=== PATIENT | male | born 1970 | race Caucasian/White ===

== ENCOUNTER 2016-05-24 00:37 | Observation (INO) | payer OTHER ==
[2016-05-23 23:48] LABS: POC - CKMB 2.5 ng/mL (0.0-7.9); POC - TROPONIN <0.05 ng/mL (<=0.05)
--- NOTE | ~2016-05-24 | EKG ---
PATIENT: LAUREANO GRANDE UNIT #: [id number] Ventricular Rate: 68 BPM Atrial Rate: 68 BPM P-R Interval: 182 ms QRS Duration: 114 ms Q-T Interval: 420 ms QTC Calculation(Bezet): 446 ms Calculated R [place]: 65 degrees Calculated T [place]: 58 degrees Diagnosis Line: Normal sinus rhythm Diagnosis Line: Normal ECG Diagnosis Line: When compared with ECG of 23-MAY-2016 22:57, Diagnosis Line: (unconfirmed) Diagnosis Line: No significant change was found Diagnosis Line: Confirmed by TERRY STARK MD ([id number]) on Diagnosis Line: 05/26/2016 11:58:28 PM INTERPRETING MD: LINCOLN GARCIA
--- NOTE | ~2016-05-24 | HP ---
Unit #: [id number] #: [id number] Patient: LAUREANO GARNER [id number] [address] [place], [place] [address] [id number] I MR#: [id number] NAME: LAUREANO GARNER ROOM: 567 Age: 46 Sex: M Admission Date: 05/24/2016 : 1970 Attending Physician: Honorio Smith M.D. Primary Care Physician: No Primary Care Physician HISTORY AND PHYSICAL CHIEF COMPLAINT Chest pain. HISTORY OF PRESENT ILLNESS The patient is a 46-year-old male with a history of coronary artery disease and RCA stent placement performed in [place] in April of 2015, who presented to the emergency department with complaints of chest pain. The patient describes the pain as a stabbing pain yet also a pressure. He says there is radiation to his left arm. He states this is similar to what he experienced with his unstable angina in April of 2015. The patient also reports after his stent was placed that he had a post NH and went back to the [facility] for a second intervention. These records are not available. I do have a card that shows he had RCA stent placement in April of 2015. The patient also has a history of hypertension, dyslipidemia, depression and COPD. The stents were placed at [facility] in [place]. The patient states that there was some associated shortness of air, nausea, vomiting and diaphoresis. He also has had some occasional dizziness. He states the pain is constant at times but also has some episodes of relief. He states the nitroglycerin has not helped the pain. PAST MEDICAL HISTORY 1. Coronary artery disease with history of RCA stent in 2016 complicated by post NH per patient and second intervention. 2. Hypertension. 3. Dyslipidemia. 4. Depression. 5. COPD. 6. Low back injury. PAST SURGICAL HISTORY None. SOCIAL HISTORY He denies tobacco use. However, there is note of vapor cigarette in the ER records. He does smoke marijuana daily for anxiety. He denies alcohol use. He does not work. FAMILY HISTORY His father had a NH, pacemaker and defibrillator and at the age of 58. ALLERGIES Tramadol and Toradol. Unit #: [id number] #: [id number] Patient: LAUREANO GARNER HOME MEDICATIONS 1. Lipitor 20 mg daily. 2. Synthroid 100 mcg daily. 3. Toprol XL 50 mg daily. 4. Aspirin 325 mg daily. 5. Flovent 100 mcg inhalation daily. 6. Lisinopril/HCTZ 20/25 mg daily. 7. Citalopram 40 mg daily. 8. Plavix 75 mg daily. 9. Remeron 15 mg q.h.s. REVIEW OF SYSTEMS CONSTITUTIONAL: The patient denies recent fevers, chills or flu-like symptoms. He does report losing 100 pounds over the past year which was unintentional. HEENT: The patient denies headache, vision loss, hearing loss epistaxis or dysphagia. PULMONARY: The patient denies cough, hemoptysis or wheezing. CARDIAC: Chest pain as above. The patient denies palpitations or tachycardia, orthopnea or PND. PULMONARY: The patient denies cough, hemoptysis or wheezing. GASTROINTESTINAL: Nausea and vomiting as above. The patient denies melena. GENITOURINARY: The patient denies hematuria. EXTREMITIES: He has occasional swelling. NEUROLOCICAL: Dizziness as above. No syncope. MUSCULOSKELETAL: The patient has low back pain and feels this limits him from walking on the treadmill for a stress test. PHYSICAL EXAMINATION GENERAL APPEARANCE: The patient is a well-developed, well-nourished male in no acute distress, awake, alert and oriented x3. VITAL SIGNS: Blood pressure 111/60. Heart rate 81 and regular. Respirations 19 and regular. Temperature 98.1. Weight 160 lb. SKIN: No rashes or hives. There are tattoos on the left upper extremity. HEENT: Head is normocephalic, atraumatic. There is poor dentition. NECK: No JVD or carotid bruit. CARDIAC: Regular rate and rhythm without murmur, gallop, rub or lift. PULMONARY: Clear to auscultation bilaterally without wheezes, rhonchi, rales or accessory muscle use. ABDOMEN: Soft, nontender, nondistended. Positive bowel sounds x4. The abdominal pulsation is not enlarged. EXTREMITIES: No clubbing, cyanosis or edema. NEUROLOGIC: Awake and oriented x3. DIAGNOSTIC STUDIES LABORATORY: TSH is 11.83. Cholesterol 162, triglycerides 62, LDL 101, HDL 49. Troponin less than 0.03 at 7:45 this morning and less than 0.05 at 23:46 yesterday. Sodium 133, potassium 3.6, chloride 95, CO2 29, glucose 109, BUN 23, creatinine 1.1. PT 10.1, INR 1.0. WBC 10.6,hemoglobin 13.0, hematocrit 39.4, platelets 224. IMAGING: Chest x-ray shows probable emphysema. There is no active disease. CARDIOVASCULAR: EKG shows normal sinus rhythm with some subtle ST elevation in the lateral leads. There is no reciprocal depression. Unit #: [id number] #: [id number] Patient: LAUREANO GARNER ASSESSMENT AND PLAN 1. Chest pain. 2. Coronary artery disease with history of RCA stent and reported post NH by the patient with repeat intervention. 3. Hypertension. 4. Dyslipidemia. 5. Daily marijuana use. 6. Hypothyroidism. 7. COPD. Mr. Garner's case was discussed with Dr. Honorio Smith. He will have a Lexiscan Cardiolite in that he states he is unable to walk the treadmill. Further recommendations will follow. If this is negative, he will be discharged home. If this shows any sign of ischemia, we will plan on a left heart catheterization. The patient also has recently moved here from [place] and reports he has ran out of some of his medications over the past week. Dictated by Tricia Martinez.Bob. for Honorio Smith M.D. JUDIT/jonatan TD: 05/24/2016 09:43 JOB #: [id number] HISTORY AND PHYSICAL X X HISTORY AND PHYSICAL
--- NOTE | ~2016-05-24 | DS ---
Unit #: [id number] #: [id number] Patient: LAUREANO GARNER [id number] [address] [address] [id number] I MR#: [id number] NAME: LAUREANO GARNER ROOM: 567 Age: 46 Sex: M Admission Date: 05/24/2016 : 1970 Discharge Date: 05/24/2016 Attending Physician: Honorio Smith M.D. Primary Care Physician: Primary Care Physician No DISCHARGE SUMMARY ANTICIPATED DATE OF DISCHARGE 05/25/2016. ADMITTING DIAGNOSES 1. Chest pain. 2. Coronary artery disease with a history of right coronary artery stent in 04/2015. 3. Hypertension. 4. Dyslipidemia. 5. Depression. 6. Chronic obstructive pulmonary disease. 7. Low-back injury. 8. Daily marijuana use and recent tobacco use. DISCHARGE DIAGNOSES 1. Chest pain. 2. Coronary artery disease with a history of right coronary artery stent in 04/2015. 3. Hypertension. 4. Dyslipidemia. 5. Depression. 6. Chronic obstructive pulmonary disease. 7. Low-back injury. 8. Daily marijuana use and recent tobacco use. HISTORY OF PRESENT ILLNESS The patient is a 46-year-old male, who was recently moved to this area from [place]. He has a history of CAD and stent placement in 04/2015 at [place]. The patient says that he has been having a left-sided chest stabbing pain. This is also just prior to the pressure and radiation to his left arm. Serial troponins were negative. The patient had a Lexiscan Cardiolite which is actually pending at the time of this dictation. If this is negative, the patient will be discharged home. If it is positive, then further recommendations will be made. DISCHARGE MEDICATIONS Lisinopril 20/25 mg daily, Flovent 100 mcg b.i.d., citalopram 40 mg daily, Remeron 15 mg q.h.s., Toprol-XL 50 mg daily, Lipitor 20 mg daily, aspirin 325 mg daily, Plavix 75 mg daily, Synthroid 100 mcg daily. Mr. Garner will be discharged home after the results of his Lexiscan are available if negative. Again if these are positive, further workup will be performed. This was discussed with Dr. Honorio Smith. He will follow up Unit #: [id number] #: [id number] Patient: LAUREANO GARNER with Dr. Smith within 1 month and was advised to follow up with his primary care physician within the next 2 weeks. Dictated by... Clarisa Person P.A.C. for Honorio Smith M.D. CMG/mari TD: 05/25/2016 00:55 JOB #: [id number] DISCHARGE SUMMARY X X DISCHARGE SUMMARY
--- NOTE | ~2016-05-24 | EKG ---
PATIENT: LAUREANO GRANDE UNIT #: [id number] Ventricular Rate: 81 BPM Atrial Rate: 81 BPM P-R Interval: 160 ms QRS Duration: 112 ms Q-T Interval: 396 ms QTC Calculation(Bezet): 460 ms P [place]: 60 degrees Calculated R [place]: 55 degrees Calculated T [place]: 59 degrees Diagnosis Line: Normal sinus rhythm Diagnosis Line: Normal ECG Diagnosis Line: No previous ECGs available Diagnosis Line: Confirmed by TERRY STARK MD ([id number]) on Diagnosis Line: 05/26/2016 11:57:40 PM INTERPRETING MD: LINCOLN GARCIA
--- NOTE | ~2016-05-24 | CR72 ---
[facility] A Service of [facility] RADIOLOGY TEXT RESULTS PATIENT: LAUREANO GRANDE LOCATION: [facility] 567-01 : [birth year] UNIT #: [id number] AGE: [address]: Honorio Smith MD SEX: M ORDER DR: [id number] [facility] [address] [facility] [address] [address]. [place], [place] [address] [id number] I MR#: [id number] Acc #: [id number] NAME: LAUREANO GRANDE : 1970 SEX: M STUDY DATE/TIME: 05/23/2016 23:44 UNIT: [facility] ROOM: [facility] STUDY DESCRIPTION: CR Chest Single View Portable Attending Physician: Honorio Smith M.D. Ordering Physician: Cherise Ragsdale M.D. Primary Care Physician: Primary Care Physician No MEDICAL IMAGING REPORT This report is preliminary unless electronic signature is present EXAM Portable chest 05/23 at 23:44 INDICATIONS Chest pain and shortness of air and left arm pain that started tonight. History of hypertension. FINDINGS AP portable chest was obtained. No comparison. Cardiac and mediastinal contours are normal. Lungs appear emphysematous but clear. No pneumothorax. IMPRESSION Probable emphysema. No active disease. Correlate with smoking history. Dictated by... Adan Mcneal Jr., M.D. THIS IS AN ELECTRONICALLY VERIFIED REPORT Adan Mcneal Jr., M.D. at 05/24/2016 12:38 PM DARYL/haley TD: 05/24/2016 09:20 JOB #: [id number] MEDICAL IMAGING REPORT COPY
--- NOTE | ~2016-05-24 | TH ---
Unit #: [id number] #: [id number] Patient: LAUREANO GRANED [id number] [address] [address] [id number] I MR#: [id number] NAME: LAUREANO GRANDE : 1970 SEX: M STUDY DATE/TIME: 05/24/2016 UNIT: [facility] ROOM: 567 STUDY DESCRIPTION: Imaging and ECG Attending Physician: Honorio Smith M.D. Primary Care Physician: No Primary Care Physician CARDIOLOGY REPORT EXAM Stress nuclear and ECG INDICATION Atypical chest pain, known coronary artery disease, stenting done in the past in [place]. Unknown locations. SUMMARY Patient was given Lexiscan intravenously. Patient stated he could not exercise because he was mentally disabled. Patient experienced dizziness and lightheadedness as well as chest pain both at rest and with stress. Technetium-99m Cardiolite, 12.0 and 30.5 mCi was given at rest and stress respectively. Appropriate views were obtained. There was early repolarization noted throughout the ECG both at rest and stress. There was no ST depression to suggest ischemia. Heart rate increased from 75 to 109, and blood pressure decreased from 113/79 to 92/54. Perfusion images show intestinal artifact more at stress than at rest. LV size is moderately enlarged, and ejection fraction 51%. There is mild hypokinesis of the anterior wall, and anterior septum. Summed stress score is 1, summed difference score is 1. End-diastolic volume is 150 mL, ejection fraction 51%. Perfusion images other than the diaphragmatic attenuation artifact and intestinal artifact both at rest and stress are essentially normal and unchanged. RV size appears upper normal. Planar images show no significant patient motion either at rest or stress. There is no significant lung uptake, but there is LV and RV enlargement. IMPRESSION 1. Cannot rule out prior anterior ischemic event and inferior ischemic event. 2. No current ischemia. 3. Prior infarctions as noted. 4. Atypical chest discomfort. 5. Normal heart rate and blood pressure responses to Lexiscan. 6. Patient may be discharged. Unit #: [id number] #: [id number] Patient: LAUREANO GRANDE Dictated by... Honorio Smith M.D. PHOEBE/isaiah TD: 05/26/2016 17:11 JOB #: [id number] CARDIOLOGY REPORT X Honorio Smith MD CARDIOLOGY REPORT
[2016-05-24 00:14] LABS: BASOPHIL# 0.1 X10e3 (0-0.3); BASOPHIL% 0.7 % (0-2.5); EOSINOPHIL# 0.2 X10e3 (0-0.7); EOSINOPHIL% 1.4 % (0.0-7.0); HEMATOCRIT 39.4 % (38.0-50.0); LYMPHOCYTE# 3.7 X10e3 (1.0-3.5); LYMPHOCYTE% 35.1 % (17.0-45.0); MEAN CELL VOLUME 85.6 FL (83-96); MEAN CORPUSCULAR HEMOGLOBIN 28.3 PG (28-34); MEAN CORPUSCULAR HGB CONC 33.1 g/dL (30-36); MEAN PLATELET VOLUME 9.4 FL (6.5-11.5); MONOCYTE# 0.9 X10e3 (0-1.0); MONOCYTE% 8.5 % (3.0-12.0); NEUTROPHIL# 5.7 X10e3 (1.5-7.1); NEUTROPHIL% 54.3 % (40-75); PLATELET COUNT 224 X10e3 (140-420); RED CELL DISTRIBUTION WIDTH 13.9 % (11.0-15.5); WHITE BLOOD COUNT 10.6 X10e3 (4.0-10.5)
[2016-05-24 00:16] LABS: DIFF IND NO
[2016-05-24 00:21] LABS: PARTIAL THROMBOPLASTIN TIME 24.7 SECONDS (23.5-31.3); PROTHROMBIN TIME (PATIENT) 10.1 SECONDS (9.6-11.5)
[2016-05-24 00:35] LABS: ALBUMIN SERUM 4.1 g/dL (3.5-5.0); ALKALINE PHOSPHATASE 60 U/L (32-92); ALT (SGPT) 24 U/L (10-40); AST (SGOT) 31 U/L (10-42); BILIRUBIN, DIRECT 0.1 mg/dL (0.0-0.2); BILIRUBIN,INDIRECT 0.3 mg/dL (0.0-0.9); BILIRUBIN,TOTAL 0.4 mg/dL (0.2-2.0); BLOOD UREA NITROGEN 23 mg/dL (9-23); CALCIUM SERUM 9.1 mg/dL (8.4-10.2); CARBON DIOXIDE 29 mmol/L (22-31); CHLORIDE 95 mmol/L (100-111); CREATININE SERUM 1.1 mg/dL (0.6-1.4); GLOM FILT RATE Estimated ABOVE60 mL/min (>60); GLUCOSE FASTING 109 mg/dL (70-110); POTASSIUM 3.6 mmol/L (3.5-5.1); PROTEIN TOTAL SERUM 6.8 g/dL (6.0-8.3); SODIUM 133 mmol/L (135-145)
[2016-05-24 02:17] LABS: POC - CKMB <1.0 ng/mL (0.0-7.9); POC - TROPONIN <0.05 ng/mL (<=0.05)
[2016-05-24] MEDS ORDERED: LIPITOR20 MG PO (05:27)
[2016-05-24] MEDS ORDERED: SYNTHROID PO (05:27)
[2016-05-24] MEDS ORDERED: TOPROL XL50 MG PO (05:28)
[2016-05-24] MEDS ORDERED: ASPIRIN ENTERI325 M1 PO (05:29)
[2016-05-24] MEDS ORDERED: LISINOPRIL-HCTZ1 T15 PO (05:30)
[2016-05-24] MEDS ORDERED: FLOVENT DISKU100 MCG INH (05:30)
[2016-05-24] MEDS ORDERED: CITALOPRAM HBR40 M1 PO (05:31)
[2016-05-24] MEDS ORDERED: CLOPIDOGREL75 MG PO (05:31)
[2016-05-24] MEDS ORDERED: REMERON15 MG PO (05:31)
[2016-05-24 08:56] LABS: CHOLESTEROL 162 mg/dL (0-200); HDL CHOLESTEROL 49 mg/dL (29-75); LDL CHOLESTEROL 101 mg/dL (-130); LDL/HDL RATIO 2 RATIO (0-4); TRIGLYCERIDES 62 mg/dL (10-160)
== END 2016-05-24 19:30 | disposition home or self-care (01) | DRG 313 ==
LOC: CED 00:37 → CEDOF 01:48 → C5C 04:13
PROVIDERS: Emergency Medicine
DX: R07.89 Other chest pain (principal); I25.10 Atherosclerotic heart disease of native coronary artery without angina pectoris; Z95.5 Presence of coronary angioplasty implant and graft; I10 Essential (primary) hypertension; I51.7 Cardiomegaly; I25.2 Old myocardial infarction; E78.5 Hyperlipidemia, unspecified; Z23 Encounter for immunization; I51.89 Other ill-defined heart diseases; S39.92XA Unspecified injury of lower back, initial encounter; F32.9 Major depressive disorder, single episode, unspecified; J44.9 Chronic obstructive pulmonary disease, unspecified; F17.200 Nicotine dependence, unspecified, uncomplicated; F12.90 Cannabis use, unspecified, uncomplicated
CPT/HCPCS: 36415; 71010; 78452; 80048; 80061; 80076; 82553; 83036; 84443; 84484; 85025; 85610; 85730; 90688; 93005; 93017; 93306; 99285; A9500; G0008; G0378; J2785

== ENCOUNTER 2016-05-26 23:25 | Emergency (ER) | payer OTHER ==
[~2016-05-26 23:25] MED LIST: ASPIRIN ENTERI325 M1 PO; CITALOPRAM HBR40 M1 PO; CLOPIDOGREL75 MG PO; FLOVENT DISKU100 MCG INH; LIPITOR20 MG PO; LISINOPRIL-HCTZ1 T15 PO; REMERON15 MG PO; SYNTHROID PO; TOPROL XL50 MG PO
== END 2016-05-27 04:12 ==
LOC: CED 23:25
DX: R45.851 Suicidal ideations (principal); R44.0 Auditory hallucinations
CPT/HCPCS: 99285

== ENCOUNTER 2016-05-27 05:10 | Inpatient (IN) | payer OTHER ==
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
--- NOTE | ~2016-05-27 | HP ---
Unit #: [id number] #: [id number] Patient: LAUREANO GRANDE [id number] [place] [address] [id number] I MR#: [id number] NAME: LAUREANO GRANDE. ROOM: P122 Age: 46 Sex: M Admission Date: 05/27/2016 : 1970 Attending Physician: Terry Arteaga M.D. Admitting Physician: Terry Arteaga M.D. Primary Care Physician: Primary Care Physician No HISTORY AND PHYSICAL HISTORY OF PRESENT ILLNESS Laureano is a 46 year old admitted to [address] [place] [address] with psychotic behavior. He reports auditory hallucinations. PAST MEDICAL HISTORY 1. Coronary artery disease. a. Angioplasty with stent placement. b. History of NC. 2. COPD. 3. Hyperlipidemia. 4. High blood pressure. PAST SURGICAL HISTORY Tramadol, Toradol. SOCIAL HISTORY He does not smoke. Denies alcohol. Admits to daily use of marijuana. FAMILY HISTORY Medically noncontributory. REVIEW OF SYSTEMS CONSTITUTIONAL: No fever or chills. HEENT: Denies any sore throat, ear pain or runny nose. CARDIOVASCULAR: Denies chest pain, irregular heart rhythm or palpitations. CHEST: Denies shortness of breath or cough. No hemoptysis. GASTROINTESTINAL: Denies nausea, vomiting, diarrhea or chronic constipation. ENDOCRINE: Denies history of increased thirst or urination. No recent significant weight loss or gain. GENITOURINARY: Denies dysuria, frequency, or hematuria. SKIN: Denies any rashes. HEMATOLOGIC: Denies history of increased bleeding or bruising. MUSCULOSKELETAL: Denies any hot, swollen joints. No generalized muscle pain. NEUROLOGIC: Denies problems with vision or speech. No frequent, severe headaches. No numbness, tingling or weakness in any extremities. Denies loss of bladder or bowel control. CURRENT MEDICATIONS 1. Zyprexa Zydis 10 mg b.i.d. 2. Milk of Magnesia p.r.n. Unit #: [id number] #: [id number] Patient: LAUREANO GRANDE 3. Maalox p.r.n. 4. Tylenol p.r.n. 5. Lorazepam p.r.n. PHYSICAL EXAMINATION GENERAL: Alert, well-nourished, in no apparent distress. VITAL SIGNS: Blood pressure 110/52, heart rate 80, respirations 16, temperature 98.6. WEIGHT: 160 pounds. HEIGHT: 5'10". SKIN: Warm and dry without rash or lesion. HEENT: Normocephalic. TMs not viewed. Oral and nasal passages clear. Conjunctivae clear. Pupils equal, round and reactive to light and accommodation. Extraocular movements intact. NECK: Supple without lymphadenopathy or thyromegaly. HEART: Regular rate and rhythm without murmur. LUNGS: Clear. ABDOMEN: Soft, nontender. : Not done. EXTREMITIES: No evidence of cyanosis, clubbing or edema. Moves all extremities without focal deficit. NEUROLOGICAL: Grossly within normal limits. Cranial Nerves: II: Visual tron[place] are intact. III, IV AND : Extraocular movements are intact. Pupils are equal, round and reactive to light. V: Facial sensation is grossly normal. VII: Facial movements and expression are normal. VIII: Auditory acuity grossly intact. IX, X: Uvula is midline. Phonation is normal. XI: Patient shrugs shoulders and turns head normally. XII: Tongue protrudes in the midline. Sensory and Motor Function: Sensory and motor sensation is grossly normal. Motor: moves all extremities well. Coordination: Gait is normal. Deep Tendon Reflexes: Intact. IMPRESSION Psychiatric admission RECOMMENDATIONS PSYCHIATRIC: Per psychiatrist. MEDICAL: I see no contraindications to participating in facility's activities. MEDICAL PROGNOSIS Good. MEDICAL CONDITION Stable. Dictated by... Jeane Farrell P.A.-C. for Jaymie Soto/josias TD: 05/28/2016 04:12 Unit #: [id number] #: [id number] Patient: LAUREANO GRANDE JOB #: [id number] HISTORY AND PHYSICAL X Jeane Farrell X HISTORY AND PHYSICAL
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
[2016-05-29 11:13] LABS: TMH HEPATITIS B SURFACE AG -JH Negative (Negative); TMH HEPATITIS C AB - JH Positive (Negative)
== END 2016-05-28 15:13 | disposition home or self-care (01) | DRG 885 ==
LOC: P2S 05:10 → P1S 12:56 → POF 14:22 → P1S 14:28
PROVIDERS: Psychiatry & Neurology Psychiatry
DX: F33.2 Major depressive disorder, recurrent severe without psychotic features (principal); R45.851 Suicidal ideations; I10 Essential (primary) hypertension; F12.20 Cannabis dependence, uncomplicated; I25.10 Atherosclerotic heart disease of native coronary artery without angina pectoris; J44.9 Chronic obstructive pulmonary disease, unspecified; Z95.5 Presence of coronary angioplasty implant and graft; E78.5 Hyperlipidemia, unspecified; E03.9 Hypothyroidism, unspecified
CPT/HCPCS: 86803; 87340; 87806; J2060